=== PATIENT | female | born 2000 | race Caucasian/White ===

== ENCOUNTER 2022-11-20 23:12 | Emergency (ER) | payer BC, SELFPAY ==
[2022-11-20 23:13] VITALS: BP 111/72; PULSE 69; RESP 16; TEMP 36.9; O2SAT 96; BMI 23.4
[2022-11-20 23:49] LABS: MANUAL DIFF FLAG NO
[2022-11-20 23:51] LABS: Basophils Absolute Auto 0.1 X10*3/uL (0.0-0.2); Basophils Percent Auto 0.7 % (0-2); Eosinophils Absolute Auto 0.1 X10*3/uL (0.0-0.4); Eosinophils Percent Auto 0.7 % (0-4); Hematocrit 38.6 % (37.0-47.0); Hemoglobin 12.8 g/dl (12.0-16.0); Imm Gran Abs Auto 0.02 X10*3/uL (0.00-0.03); Imm Gran Pct Auto 0.2 % (0.0-0.4); Lymphocytes Absolute Auto 2.2 X10*3/uL (1.2-4.9); Lymphocytes Percent Auto 24.9 % (20-40); Mean Corpuscular HGB Conc 33.2 g/dl (31.0-35.0); Mean Corpuscular Hemoglobin 28.1 pg (27.0-33.0); Mean Corpuscular Volume 84.6 fL (80.0-98.0); Mean Platelet Volume 10.2 fL (9.4-12.3); Monocytes Absolute Auto 0.8 X10*3/uL (0.1-1.2); Monocytes Percent Auto 8.9 % (2-11); Neutrophils Absolute Auto 5.8 x10*3/uL (2.0-8.3); Neutrophils Percent Auto 64.6 % (45-73); Platelet Count 242 X10*3/uL (160-400); Red Blood Count 4.56 X10*6/uL (4.20-5.50); Red Cell Distribution Width 12.6 % (11.0-16.0)
--- NOTE | 2022-11-20 23:58 | ED_ITS ---
HPI - Animal Bite General Chief Complaint: Animal Bite Stated Complaint: Dog bite Time Seen by Provider: 11/20/22 23:50 Source: patient and RN notes reviewed Mode of arrival: ambulatory Limitations: no limitations History of Present Illness HPI narrative: This is a 22-year-old female presenting to the emergency department with complaints of left cheek laceration s/p dog bite. Pt states that approximately 1 hours ago, she was bite by her friend's jane weeks. Pt states that the dog is UTD with all of its immunizations. patient reports that her last tetanus shot was last year. Denies hitting head or LOC. She is otherwise feeling well. No other complaints or concerns at this time. MD complaint: animal bite Onset (ago): hour(s) Animal: dog Description of animal: immunizations UTD Mechanism: bite Location: head Associated symptoms: none Related Data Patient tetanus UTD: Yes Previous Rx's Medication Instructions Recorded amoxicillin 875 mg-potassium 1 tab PO BID 5 days #10 tabs 11/21/22 clavulanate 125 mg tablet Allergies Allergy/AdvReac Type Severity Reaction Status Date / Time No Known Allergies Allergy Verified 11/21/22 00:05 Review of Systems 2 Review of Systems: Yes all other systems are reviewed and are negative PMFSH Social History Social History Advance Directives: No Advance Directives Information Provided: Yes Physical Exam ED Vital Signs: Vital Signs - 24 hr 11/20/22 23:13 11/21/22 01:05 Temperature 98.5 F Pulse Rate 69 61 Respiratory Rate 16 18 Blood Pressure 111/72 127/63 Pulse Oximetry 96 98 Oxygen Delivery Method Room Air Room Air BMI result Body Mass Index 23.4 Skin Other: Multiple superficial abrasions noted, there is a partial-thickness laceration noted to the left cheek, no active bleeding or drainage. Medications Administered Discontinued Medications Generic Name Dose Route Start Last Admin Trade Name Freq PRN Reason Stop Dose Admin Amoxicillin/Clavulanate Potassium 875 mg 11/21/22 00:49 11/21/22 01:02 Amoxicillin/Potassium Clav 875 Mg Tablet PO 11/21/22 00:50 875 mg ONCE ONE Administration Bacitracin 1 appl 11/21/22 00:50 11/21/22 01:02 Bacitracin Oint 0.9 Gm Packet TOPICAL 11/21/22 00:51 1 appl ONCE ONE Administration Protocol Lidocaine HCl 4 ml 11/21/22 00:05 11/21/22 00:19 Lidocaine Hcl 1 % Mpf 2 Ml Vial INFILTRATI 11/21/22 00:06 4 ml ONCE ONE Administration Medical Decision Making Medical Decision Making [facility] Narrative: This is a 22-year-old female presenting to the emergency department for evaluation of laceration to left cheek after being bit by dog in the face. Dog is up-to-date with all of its immunizations. Patient's tetanus is up-to-date. Patient has scattered superficial abrasions with 1 2 cm partial-thickness laceration noted to left cheek. I discussed this case with my attending physician, Dr. Camilo. Given laceration is on the face, will close loosely with 1 suture for better wound approximation. Unable to fully close wound given dog bite and risk of infection. Pt understands course of treatment. Wound extensively cleansed using Betadine and saline. 1 6-0 nylon suture placed to wound, patient tolerated procedure well without any complications or concerns. Patient medicated with 1st dose of Augmentin in the department today. given return precautions. Patient understands and agrees with plan. Patient stable for discharge Differential Diagnosis Differential Diagnoses: The differential diagnosis associated with the presentation includes laceration, abrasion, contusion, hematoma Lab Data [facility] Lab Attestation statement: I reviewed the patient's lab results. No leukocytosis, stable H&H. 11/20/22 23:43 11/20/22 23:43 Labs: Lab Results 11/20/22 Range/Units 23:43 WBC 9.0 (4.8-10.8) X10*3/uL RBC 4.56 (4.20-5.50) X10*6/uL Hgb 12.8 (12.0-16.0) g/dl Hct 38.6 (37.0-47.0) % MCV 84.6 (80.0-98.0) fL MCH 28.1 (27.0-33.0) pg MCHC 33.2 (31.0-35.0) g/dl RDW 12.6 (11.0-16.0) % Plt Count 242 (160-400) X10*3/uL MPV 10.2 (9.4-12.3) fL Immature Gran % (Auto) 0.2 (0.0-0.4) % Neut % (Auto) 64.6 (45-73) % Lymph % (Auto) 24.9 (20-40) % Mcdowell % (Auto) 8.9 (2-11) % Eos % (Auto) 0.7 (0-4) % Baso % (Auto) 0.7 (0-2) % Lymph # (Auto) 2.2 (1.2-4.9) X10*3/uL Mcdowell # (Auto) 0.8 (0.1-1.2) X10*3/uL Eos # (Auto) 0.1 (0.0-0.4) X10*3/uL Baso # (Auto) 0.1 (0.0-0.2) X10*3/uL Abs Immat Gran (auto) 0.02 (0.00-0.03) X10*3/uL Absolute Neuts (auto) 5.8 (2.0-8.3) x10*3/uL Absolute Nucleated RBC 0.000 (0.0-0.012) X10*3/uL Nucleated RBC % (auto) 0.0 (0.0-0.2) /100WBC Sodium 139 (135-145) mmol/L Potassium 4.2 (3.3-5.1) mmol/L Chloride 107 (96-108) mmol/L Carbon Dioxide 22 (22-29) mmol/L Anion Gap 14 (12-20) BUN 12 (9-16) mg/dL Creatinine 0.82 (0.5-1.4) mg/dL Estim Creat Clear Calc 85.8 Estimated GFR > 60 Random Glucose 88 (60-115) mg/dL Calcium 9.3 (8.4-10.2) mg/dL Procedures Laceration Laceration 1: Site: face Side (If applicable): left Size (cm): 2 Description: linear Depth: simple, single layer Local Anesthetic: lidocaine 1% Amount of anesthesia used (mL): 3 Pre-repair: wound explored, irrigated extensively and deep structures intact Skin layer closed with: nylon Size (cm): 6-0 Number of sutures: 1 Technique: simple, interrupted Discharge Plan Discharge Clinical Impression: Bite by animal, Dog bite Patient Disposition: Home, Self-Care Instructions: Animal Bite (ED) Additional Instructions: Please take entire course of antibiotics. This is very important to prevent infection. You may gently wash wound with warm water and mild soap. Do not pick at wound. Please have suture removed in 5 days. You may return or or go your health services. Watch for any signs of infection including increased redness, swelling, fevers, or chills. If any new or worsening symptoms occur, please return for re-evaluation. Prescriptions: New amoxicillin-pot clavulanate 875-125 mg tablet 1 tab PO BID 5 Days Qty: 10 0RF Interventions: ED Discharge Assessment Last Done: 11/21/22 01:21 Discharge Date/Time: 11/21/22 01:22
[2022-11-21 00:05] LABS: Anion Gap 14 (12-20); Blood Urea Nitrogen 12 mg/dL (9-16); Calcium 9.3 mg/dL (8.4-10.2); Carbon Dioxide 22 mmol/L (22-29); Chloride 107 mmol/L (96-108); Creatinine Clr Calc Pharmacy 85.8; Estimated Glomerular Filt Rate > 60; Glucose Random 88 mg/dL (60-115); Potassium 4.2 mmol/L (3.3-5.1); Sodium 139 mmol/L (135-145)
[2022-11-21] MEDS: Lidocaine HCl 1 % MPF 2 ML VIAL 4 ML INFILTRATI (00:19)
[2022-11-21] MEDS: Bacitracin Oint 0.9 GM PACKET 1 APPL TOPICAL (01:02)
[2022-11-21] MEDS: Amoxicillin/Potassium Clav 875 MG TABLET PO (01:02)
[2022-11-21 01:05] VITALS: BP 127/63; PULSE 61; RESP 18; O2SAT 98
--- NOTE | 2022-11-21 01:11 | PC.NURSE ---
Pt medicated per Mar.
== END 2022-11-21 01:22 | disposition home or self-care (01) ==
PROVIDERS: Emergency Provider Emergency Medicine
DX: S01.452A Open bite of left cheek and temporomandibular area, initial encounter (principal); W54.0XXA Bitten by dog, initial encounter; Y93.9 Activity, unspecified; Y92.009 Unspecified place in unspecified non-institutional (private) residence as the place of occurrence of the external cause; Y99.9 Unspecified external cause status
CPT/HCPCS: 12011; 36415; 80048; 85025; 99282; 99284